=== PATIENT | male | born 1980 | race Caucasian/White ===

== ENCOUNTER 2018-07-05 11:00 | Outpatient (CLI) | payer BC ==
[2018-07-05] VITALS (20 sets, daily range): BP systolic 88–112; BP diastolic 43–72; BMI 28.4
[~2018-07-05] VITALS: Ht 175.3 cm; Wt 87.0 kg
--- NOTE | ~2018-07-05 | EC ---
PATIENT:CATARINA MANJARREZ DATE OF SERVICE: 07/05/18 SEX: M MEDICAL RECORD: [id number] DATE OF : [birth year] LOCATION:[place] [address] AGE OF PATIENT: 37 ADMISSION DATE: 07/05/18 REFERRING PHYSICIAN: INTERPRETING PHYSICIAN: RODO GUO MD ECHOCARDIOGRAM REPORT ECHO CHARGES 4 ECHO COMPLETE Date: 07/06/18 CLINICAL DIAGNOSIS: ME ECHOCARDIOGRAPHIC MEASUREMENTS (adult normal given) AC root (d.<3.7cm) 3.6 cm LV Septum d (<1.2 cm> 1.5 cm Valve Excursion 2.2 cm LV Septum (systole) 1.6 cm Left Atria (s.<4.0cm> 3.2 cm LVPW d(<1.2cm) 1.5 cm RV (d.<2.3cm) cm LVPW (sytole) 1.6 cm LV diastole(<5.6CM) 4.7 cm MV E-F(>70mm/sec) cm LV systole 3.4 cm LVOT Diameter 1.9 cm MV exc.(>10mm) 1.3 cm Est.ejection fraction (50-75%) % DOPPLER: LVIT cm/sec A 69.0 cm/sec E 62.0 cm/sec LA cm/sec RVSP 25 mmHg LVOT 101 cm/sec AOP1/2T m/s Asc. Ao 128 cm/sec RVOT 85 cm/sec RA cm/sec PA 130 cm/sec AV Gradient Peak 6.59 mmHg AV Mean 4.29 mmHg AV Area 2.1 cm MV Gradient Peak 2.93 mmHg MV Mean 1.52 mmHg MV Area cm COMMENTS: Candy Packer: Anton JONES Candle Molder Hand: 1 Dr. Guo TAPE# PACS Pericardial Effusion N DATE OF SERVICE: 07/06/2018 PROCEDURE: Echocardiogram. FINDINGS: 1. Left ventricular chamber size is within normal limits. Left ventricular systolic function is mildly depressed. Overall ejection fraction 45% to 50%, apical hypokinesis. 2. Left atrium, right atrium, right chamber size are within normal limits. 3. Valvular structures have normal structure and motion. ECHOCARDIOGRAM REPORT [id number] CATARINA MANJARREZ 4. Doppler interrogation reveals no significant valvular insufficiency or stenosis. 5. No evidence of pericardial effusion or left ventricular thrombus. TRANSINT:[id number] Voice Confirmation ID: [id number] DOCUMENT ID: [id number] RODO GUO MD CC: [id number] DICTATION DATE: 07/06/18 1024 BUNCH MAKER: 07/06/18 [address] [place] [id number] [place] [id number]
--- NOTE | ~2018-07-05 | HEMODYNAMI ---
PATIENT:CATARINA MANJARREZ MEDICAL RECORD: [id number] : 76 LOCATION:[facility] ADMISSION DATE: 07/05/18 Generatedon:07/05/201812:04 Patient name: CATARINA MANJARREZ Patient #: [id number] SSN: : 1980 Date of study: 07/05/2018 Page: Of Hemodynamic Procedure Report Patient Data Patient Demographics Procedure consent was obtained First Name: CATARINA Gender: Male Last Name: LOKI : 1980 Patient #: [id number] Age: 37 year(s) Race: Unknown Additional ID: [id number] Contact details Address: [address] [place] [address] [place] State: [place] City: [place] Zip code: [address] Past Medical History Allergies: No known allergies Admission Admission Data Admission Date: 07/05/2018 Admission Time: 11:00 Admit Source: Emergency department Weight (lbs.): 182 Weight (kg.): 82.55 Procedure Procedure Types Cath Procedure Diagnostic Procedure [facility] w/Coronaries Sedation Charges Moderate Sedation up to 15 minutes PCI Procedure Coronary Stent Coronary Stent Additional AMI/SVG/COMMERCIAL FISHING VESSEL OPERATOR PTCA or Stent AMI-BMS/STEPHANI Initial Procedure Description Procedure Date Procedure Date: 07/05/2018 Procedure Start Time: 11:41 Procedure End Time: 12:02 Procedure Staff Name Function Keith Guo MD Performing Physician Brianda Camejo RT Monitor Jeffery Maddox RT Scrub Nicolette Moser RN Nurse Procedure Data Cath Procedure Fluoroscopy Diagnostic fluoroscopy Total fluoroscopy Time: 4.9 time: 4.9 min min Diagnostic fluoroscopy Total fluoroscopy dose: 789 dose: 789 mGy mGy Contrast Material Contrast Material Type Amount (ml) Isovue 300 150 Entry Location Entry Primary Successful Side Size Upsize Upsize Entry Closure Succes sful Closure Location (Fr) 1 (Fr) 2 (Fr) Remarks Device Remarks Femoral Right 6 Fr Exoseal artery Short Estimated blood loss: 5 ml Diagnostic catheters Device Type Used For End Catheter Placement MULTIPACK Pigtail 5 Fr Multi-vessel catheter Angiography MULTIPACK JL 4.0 5Fr Left Coronary catheter Angiography MULTIPACK 3DRC 5Fr Right Coronary catheter Angiography Procedure Complications No complications Procedure Medications Medication Administration Route Dosage 0.9% NaCl I.V. 100 ml/hr Oxygen etCO2 Nasal cannula 2 l/min Lidocaine 2% added to field 20 Heparin Flush Bag added to field 2 bags (1000units/500ml NS) Versed I.V. 2 mg Fentanyl I.V. 50 mcg Versed I.V. 2 mg Fentanyl I.V. 50 mcg Heparin Bolus I.V. 5000 units Integrilin (Bolus I.V. 7.3 ml 2mg/ml) Integrilin (Bolus 7.3 ml 2mg/ml) Integrilin Drip I.V. drip 13 ml/hr (75mg/100ml) Versed I.V. 2 mg Fentanyl I.V. 100 mcg Lopressor I.V. 5 mg Hemodynamics Rest Heart Rate: 96 (bpm) Snapshots Pre Cath Intra NCS Post Cath Vital Signs Time Heart Resp SPO2 etCO2 NIBP (mmHg) Rhythm Pain Sedation Rate (ipm) (%) (mmHg) Status Level (bpm) 11:31:00 99 21 99 31 173/106(123) NSR 0 (11) 10(A) , No pain 11:35:24 92 10 100 18.7 163/104(131) NSR 0 (11) 10(A) , No pain 11:39:45 93 19 100 32.2 168/109(130) NSR 0 (11) 10(A) , No pain 11:44:03 96 21 99 36.7 159/99(130) NSR 0 (11) 9(A) , No pain 11:48:14 101 22 100 31.5 128/102(120) NSR 0 (11) 9(A) , No pain 11:52:26 83 20 100 36 149/97(119) NSR 0 (11) 9(A) , No pain 11:56:38 70 11 100 29.2 134/88(113) NSR 0 (11) 9(A) , No pain 12:00:52 78 19 100 36.7 139/96(114) NSR 0 (11) 10(A) , No pain Medications Time Medication Route Dose Verified Delivered Reason Notes Effectiveness by by 11:33:56 0.9% NaCl I.V. 100 Keith Nicolette used for ml/hr Sari Moser religious healer 11:34:02 Oxygen etCO2 2 Keith Nicolette used for Nasal l/min Sari Moser procedure cannula RN 11:34:08 Lidocaine 2% added 20ml Keith Keith for local to vial Sari Guo MD anesthetic field 11:34:14 Heparin Flush added 2 Keith Keith used for Bag to bags Sari Guo MD procedure (1000units/500ml field NS) 11:35:00 Versed I.V. 2 mg Keith Nicolette for sedation Sari Moser RN 11:35:06 Fentanyl I.V. 50 Keith Nicolette for sedation mcg Sari Moser RN 11:39:34 Versed I.V. 2 mg Keith Nicolette for sedation Sari Moser RN 11:39:38 Fentanyl I.V. 50 Keith Nicolette for sedation mcg Sari Moser RN 11:45:37 Heparin Bolus I.V. 5000 Keith Nicolette for verif ied units Sari Moser anticoagulation with Dr. OLMAN Guo 11:46:24 Integrilin I.V. 7.3 Keith Nicolette for waste d (Bolus 2mg/ml) ml Sari Moser antiplatelet 2.7mL RN therapy 11:47:13 Integrilin IC 7.3 Keith Keith for WASTE D (Bolus 2mg/ml) ml Sari Guo MD antiplatelet 2.7ML therapy 11:54:51 Integrilin Drip I.V. 13 Keith Nicolette for (75mg/100ml) drip ml/hr Sari Moser antiplatelet RN therapy 11:55:01 Versed I.V. 2 mg Keith Nicolette for sedation Sari Moser RN 11:55:11 Fentanyl I.V. 100 Keith Nicolette for sedation mcg Sari Moser RN 11:55:18 Lopressor I.V. 5 mg Keith Nicolette Per physician Sari Moser childbirth and infant care teacher Log Time Note 11:18:49 Diagnostic Cath Status : Elective 11:19:06 Nicolette Moser RN sent for patient. Start room use. 11:19:07 Time tracking: Regular hours (M-F 7:00 - 5:00) 11:19:13 Plan of Care:Hemodynamics will remain stable., Cardiac rhythm will remain stable., Comfort level will be maintained., Respiratory function will remain adequate., Patient/ family verbilizes understanding of procedure., Procedure tolerated without complication., Recovers from procedure without complications.. 11:24:46 Patient received from ED to CCL 1 Alert and oriented. Tansferred to table in Supine position. 11:24:47 Warm blankets applied, and destini hugger turned on for patient comfort. 11:24:47 Correct patient and procedure confirmed by team. 11:24:49 Signed procedure consent form obtained from patient. 11:24:50 ECG and BP/O2 sat monitors applied to patient. 11:29:41 Vital chart was started 11:30:05 Baseline sample Acquired. 11:30:20 Rhythm: sinus rhythm , w/ ST elevation 11:30:23 Full Disclosure recording started 11:30:34 H&P Date Dictated: 07/05/2018 ER History on chart.. 11:30:36 Pre-procedure instructions explained to patient. 11:30:38 Pre-op teaching completed and patient verbalized understanding. 11:30:40 Family in waiting room. 11:30:57 Patient NPO since Breakfast. 11:31:06 Patient allergic to No known allergies 11:31:13 Is patient on blood thinner?No 11:31:30 LOADED WITH PLAVIX IN THE ER 11:31:33 Patient diabetic? No. 11:31:41 ----Pre-sedation anethsthesia assessment.---- 11:31:46 Previous problem with sedation/anesthesia? No ? 11:31:49 Snore? Yes 11:31:50 Sleep apnea? No 11:31:53 Deviated septum? No 11:31:54 Opens mouth fully? Yes 11:31:56 Sticks out tongue? Yes 11:31:59 Airway obstruction? No ? 11:32:07 Dentures? No ? 11:32:18 Pre procedure: right dorsailis pedis pulse 2+ Normal; easily identifiable; not easily obliterated 11:32:31 Patient pain scale 3/10 NOTIFIED. 11:32:45 IV patent on arrival in left antecubital with 0.9% NaCl at O. 11:32:54 Right groin area was prepped with chlora-prep and draped in sterile fashion 11:33:06 Admit Source: Emergency department 11:33:11 Patient Weight : 182 lbs 11:33:51 Alarms reviewed by R. N. 11:33:52 Sharps counted by scrub and verified by R.N. 11:33:56 0.9% NaCl 100 ml/hr I.V. was administered by Nicolette Moser RN; used for procedure; 11:34:01 Baseline sample Acquired. 11:34:02 Oxygen 2 l/min etCO2 Nasal cannula was administered by Nicolette Moser RN; used for procedure; 11:34:08 Lidocaine 2% 20ml vial added to field was administered by Keith Guo MD; for local anesthetic; 11:34:12 Physician arrived 11:34:13 --------ALL STOP TIME OUT------ 11:34:13 Final Timeout: patient, procedure, and site verified with staff and physician. All members of the team are in agreement. 11:34:14 Heparin Flush Bag (1000units/500ml NS) 2 bags added to field was administered by Keith Guo MD; used for procedure; 11:34:37 Right groin site verified by team. 11:34:43 Maximum allowable Isovue 300 dose 300ml. Physician notified. (300ml for normal creatinines. For patients with creatinine of 1.7 or higher multiply weight(kg) x 5 divided by creatinine.) 11:34:49 Fire Safety Assessment: A--An alcohol-based skin anteseptic being used preoperatively., C--Open oxygen or nitrous oxide is being used., D--An ESU, laser, or fiber-optic light is being used. 11:34:53 Physical assessment completed. ASA score P 2 - A patient with mild systemic disease as per Keith Guo MD. 11:34:56 Sedation plan: IV Moderate Sedation Medication:Versed, Fentanyl 11:35:00 Versed 2 mg I.V. was administered by Nicolette Moser RN; for sedation; :35:06 Fentanyl 50 mcg I.V. was administered by Nicolette Moser RN; for sedation; 11:38:23 Zero performed for pressure channel P1 11:39:15 Procedure started. 11:39:34 Versed 2 mg I.V. was administered by Nicolette Moser RN; for sedation; 11:39:38 Fentanyl 50 mcg I.V. was administered by Nicolette Moser RN; for sedation; 11:41:06 Local anesthetic to right femoral artery with Lidocaine 2% by Keith Guo MD.INITIAL ACCESS ONLY 11:41:15 A 6 Fr Short sheath was inserted into the Right Femoral artery 11:41:41 Use device set Femoral Dx 11:41:42 ACIST Syringe (58178) opened to sterile field. 11:41:42 Bag Decanter (2002S) opened to sterile field. 11:41:43 Medline Cath Pack ([id number]) opened to sterile field. 11:41:43 DIAGNOSTIC WIRE .035 260cm J wire (041545) opened to sterile field. 11:41:45 ACIST Hand Control (19423) opened to sterile field. 11:41:45 ACIST Manifold (52523) opened to sterile field. 11:41:46 DIAGNOSTIC Multipack 5Fr catheter set ([id number]) opened to sterile field. 11:41:46 Tegaderm 4 x 4 (1626W) opened to sterile field. 11:41:59 SHEATH 6FR [place] (CEJ030) opened to sterile field. 11:42:19 A MULTIPACK Pigtail 5 Fr catheter was advanced over the wire and used for Multi-vessel Angiography. 11:42:22 LV hemodynamics recorded. 11:42:23 LV gram done using WILKS 11:42:25 Injector settings: Ml/sec: 5, Volume: 15, 11:42:32 EF : 35 % 11:42:46 Catheter removed. 11:42:52 A MULTIPACK JL 4.0 5Fr catheter was advanced over the wire and used for Left Coronary Angiography. 11:43:02 LCA angiography performed. 11:43:05 Injector settings: Ml/sec: 3, Volume: 6, 11:44:38 Catheter removed. 11:44:44 A MULTIPACK 3DRC 5Fr catheter was advanced over the wire and used for Right Coronary Angiography. 11:44:48 RCA angiography performed. 11:44:50 Injector settings: Ml/sec: 3, Volume: 6, 11:44:52 Catheter removed. 11:44:53 Proceeding to intervention. 11:45:19 INFLATOR Merit BasixCompak (SU0781) opened to sterile field. 11:45:20 GUIDE 6FR XBLAD 3.5 catheter ([id number]) opened to sterile field. 11:45:21 CHOICE PT Extra Support 182cm wire ([id number]) opened to sterile field. 11:45:36 6 Fr XBLAD 3.5 guide catheter was inserted over the wire 11:45:37 Heparin Bolus 5000 units I.V. was administered by Nicolette Moser RN; for anticoagulation; verified with Dr. Guo 11:45:44 CHOICE PT wire advanced. 11:45:56 Wire advanced across lesion. 11:46:24 Integrilin (Bolus 2mg/ml) 7.3 ml I.V. was administered by Nicolette Moser RN; for antiplatelet therapy; wasted 2.7mL 11:46:45 Inflate balloon Inflation number: 1 A EUPHORA 2.5 x 20 Balloon ([id number]) was prepped and advanced across the Prox LAD, then inflated to 13 SAGAR for 0:10 (min:sec). 11:47:13 Integrilin (Bolus 2mg/ml) 7.3 ml IC was administered by Keith Guo MD; for antiplatelet therapy; WASTED 2.7ML 11:47:35 Inflation number: 2 The EUPHORA 2.5 x 20 Balloon ([id number]) was reinflated across the Prox LAD, to 13 SAGAR for 0:10 (min:sec). 11:47:44 Balloon removed over the wire. 11:49:11 Place stent Inflation Number: 3 A JAXSON RX 3.0 x 26 stent ([id number]) was prepped and advanced across the Prox LAD. The stent was deployed at 17 SAGAR for 0:10 (min:sec). 11:50:10 Stent catheter was removed intact over wire. 11:50:41 Wire redirected to DIAGONAL. 11:52:36 Inflate balloon Inflation number: 1 A EUPHORA 2.5 x 12 Balloon ([id number]) was prepped and advanced across the 1st Diag, then inflated to 11 SAGAR for 0:10 (min:sec). 11:53:55 Balloon removed over the wire. 11:54:51 Integrilin Drip (75mg/100ml) 13 ml/hr I.V. drip was administered by Nicolette Moser RN; for antiplatelet therapy; 11:55:01 Versed 2 mg I.V. was administered by Nicolette Moser RN; for sedation; 11:55:11 Fentanyl 100 mcg I.V. was administered by Nicolette Moser RN; for sedation; 11:55:18 Lopressor 5 mg I.V. was administered by Nicolette Moser RN; Per physician; 11:56:11 Place stent Inflation Number: 2 A JAXSON RX 2.5 x 08 stent ([id number]) was prepped and advanced across the 1st Diag. The stent was deployed at 11 SAGAR for 0:10 (min:sec). 11:56:55 Stent catheter was removed intact over wire. 11:56:57 Wire removed. 11:56:58 Guide catheter removed. 11:57:15 EXOSEAL 6Fr (EX600) opened to sterile field. 11:57:26 Sheath removed intact; hemostasis achieved with Exoseal to the Right Femoral artery. 11:59:05 Procedure ended.(Physican Out) 11:59:47 Fluoroscopy time 04.90 minutes. 11:59:53 Fluoroscopy dose: 789 mGy 11:59:53 Flurop Dose total: 789 12:00:14 Contrast amount:Isovue 300 150ml. 12:00:27 Sharps counted by scrub and verified by R.N. 12:00:29 Insertion/operative site no bleeding no hematoma. 12:00:32 Post-op/insertion site Right Femoral artery dressed using a 4 x 4 and Tegaderm. 12:00:35 Post right femoral artery:stable 12:00:36 Post Procedure Pulses reassessed and unchanged 12:00:44 Post procedure rhythm: sinus rhythm 12:00:47 Estimated blood loss: 5 ml 12:00:50 Post procedure instruction explained to patient.Patient verbalizes understanding. 12:00:50 Patient needs reinforcement of post procedure teaching. 12:02:03 Procedure type changed to Cath procedure, Diagnostic procedure, LHC, LHC w/Coronaries, Sedation Charges, Moderate Sedation up to 15 minutes, PCI procedure, Coronary Stent, Coronary Stent Additional, AMI/SVG/COMMERCIAL FISHING VESSEL OPERATOR PTCA or Stent, AMI-BMS/STEPHANI Initial 12:02:04 Procedure and supply charges have been captured, reviewed, submitted and are correct. 12:02:09 Procedure Complication : No complications 12:02:12 Vital chart was stopped 12:02:15 See physician's report for complete and final results. 12:02:19 Report given to CVICU. 12:02:22 Patient transfered to CVICU with Stretcher. 12:02:28 Procedure ended. 12:02:28 Full Disclosure recording stopped 12:02:41 ACC-PCI Only Patient was given prescriptions, or instructed by Keith Guo MD to start/continue the following medications upon discharge: Plavix 12:02:44 End room use (Document Last) Intervention Summary Intervention Notes Time ActionType Lesion and Equipment Used Action# Pressure Duration Attributes 11:46:45 Inflate Prox LAD EUPHORA 2.5 x 1 13 00:10 balloon 20 Balloon ([id number]) 11:47:35 Reinflate Prox LAD EUPHORA 2.5 x 2 13 00:10 balloon 20 Balloon ([id number]) 11:49:11 Place stent Prox LAD JAXSON RX 3.0 x 3 17 00:10 26 stent ([id number]) 11:52:36 Inflate 1st Diag EUPHORA 2.5 x 1 11 00:10 balloon 12 Balloon ([id number]) 11:56:11 Place stent 1st Diag JAXSON RX 2.5 x 2 11 00:10 08 stent ([id number]) Device Usage Item Name Manufacture Quantity Catalog Number Hospital Part Current M inimal Lot# / Charge Number Stock Stock Serial# Code ACIST Syringe Acist 1 64289 853186 447528 070344 2 0 (67177) Medical Systems Inc Bag Decanter Microtek 1 2001S 718514 44491 247741 5 () Medical Inc. Medline Cath Medline 1 [id number] 725869 17863 932400 5 Pack ([id number]) DIAGNOSTIC [facility] 1 097038 085708 967280 342266 3 0 WIRE .035 260cm J wire (785119) ACIST Hand Acist 1 19119 618836 090713 290641 5 Control Medical (03358) Systems Inc ACIST Manifold Acist 1 05529 856400 011280 473322 5 (32150) Medical Systems Inc DIAGNOSTIC Cardinal 1 IB0342 995348 80114 964962 3 0 Multipack 5Fr Health catheter set ([id number]) Tegaderm 4 x 4 3M 1 1626W 153824 100146 685642 5 (1626W) SHEATH 6FR Terumo 1 RGO722 890830 549799 249909 4 0 [place] (JAI512) MULTIPACK Cardinal 1 707337 5 Pigtail 5 Fr Health catheter MULTIPACK JL Cardinal 1 001150 5 4.0 5Fr Health catheter MULTIPACK 3DRC Cardinal 1 606673 5 5Fr catheter Health INFLATOR Merit Merit 1 BT2545 860918 350648 848932 1 5 [facility] Medical (GE1633) GUIDE 6FR Cardinal 1 [id number] 851346 902223 760948 1 0 XBLAD 3.5 Health catheter ([id number]) CHOICE PT Vance 1 [id number] 800946 292840 398399 5 Extra Support Scientific 182cm wire ([id number]) EUPHORA 2.5 x Medtronic 1 [id number] 368910 520462 786653 5 [id number] 20 Balloon ([id number]) JAXSON RX 3.0 x Medtronic 1 [id number] 689067 0983200 503571 5 [id number] 26 stent ([id number]) EUPHORA 2.5 x Medtronic 1 [id number] 493669 124370 196258 5 [id number] 12 Balloon ([id number]) JAXSON RX 2.5 x Medtronic 1 [id number] 577836 0508662 047685 5 [id number] 08 stent ([id number]) EXOSEAL 6Fr Cardinal 1 EX600 888482 401473 650154 1 0 (EX600) Health Signature Audit [place] Stage Time Signature Unsigned Intra-Procedure 07/05/2018 Brianda Camejo 12:04:38 PM RT(R) Signatures Monitor : Brianda Camejo RT Signature : Date : Time : [facility] [address] [place] [address]
[2018-07-05 11:29] LABS: BASOPHILS 0.1 % (0-2); EOSINOPHILS 0.1 % (0-7); HEMATOCRIT 42.4 % (42.0-54.0); HEMOGLOBIN 14.7 g/dL (13.5-17.5); IMMATURE GRANULOCYTES 0.4 % (0-5); LYMPHOCYTES 6.7 % (15-50); MCH 30.2 pg (26.0-34.0); MCHC 34.7 g/dL (31.0-37.0); MCV 87.1 fL (80.0-100.0); MEAN PLATELET VOLUME 10.4 fL (7.4-10.4); MONOCYTES 6.6 % (2-11); NEUTROPHILS 86.1 % (40-80); PLATELET COUNT 220 10x3/uL (130-400); RBC 4.87 10x6/uL (4.20-6.10); RDW 13.3 % (11.5-14.5); WBC 16.9 10x3/uL (4.8-10.8)
[2018-07-05 11:38] LABS: ANION GAP 14.3 mmol/L (8-16); CALCIUM 9.3 mg/dL (8.5-10.1); CARBON DIOXIDE 25.2 mmol/L (21.0-32.0); CREATININE - SERUM 1.3 mg/dL (0.6-1.3); POTASSIUM - SERUM 4.5 mmol/L (3.5-5.1)
--- NOTE | 2018-07-05 12:15 | NUR ---
PT ARRIVED FROM GRID OPERATOR VIA BED. ABLE TO ANSWER QUESTIONS APPROPRIATELY. FIANCE AT BEDSIDE. 6F EXOCEL TO RIGHT GROIN. FEMSTOP IN PLACE. PEDAL PULSES PALPABLE. NO BLEEDING OR HEMATOMA NOTED AT THIS TIME. PT DENIES ANY PAIN AT THIS TIME. HAS 20 G PIV ON L-FOREARM WITH INTEGRILIN AT 13ML/HR. NS INITIATED AT 100ML/HR PER ORDERS.
--- NOTE | 2018-07-05 13:39 | NUR ---
ORDERED REGULAR DIET PER DR. VINCENT. ICE CHIPS PROVIDED AT THIS TIME. IN GOOD SPIRITS. FIANCE AT BEDSIDE. WILL CONTINUE TO MONITOR.
--- NOTE | 2018-07-05 14:35 | NUR ---
PERIPHERAL PULSE ON RIGHT LEG PALPABLE. NO HEMATOMA OR BLEEDING NOTED AT THIS TIME. PT COMPLAINING OF DISCOMFORT DUE TO FEM STOP. WILL CONTINUE TO MONITOR.
--- NOTE | 2018-07-05 15:04 | NUR ---
NO BLEEDING OR HEMATOMA NOTED. FEM STOP PRESSURE REDUSED TO 120 TO 100. WILL CONTINUE TO MONITOR.
--- NOTE | 2018-07-05 16:43 | NUR ---
FEM STOP REMOVED PER ORDERS. NO BLEEDING OR HEMATOMA NOTED. MILD BRUISING NOTED AT SITE. PT SITTING UP IN BED. MEAL TRAY DELIVERED AND SET UP. FIANCE AT BEDSIDE. NO FURTHER NEEDS AT THIS TIME. WILL CONTINUE TO MONITOR.
--- NOTE | 2018-07-05 17:08 | NUR ---
NO BLEEDING OR HEMATOMA NOTED ON R GROIN AT CATH SITE. PT DENIES CHEST PAIN. ATE 100% OF MEAL. RESTING COMFORTABLY. NO FURTHER NEEDS AT THIS TIME. WILL CONTINUE TO MONITOR.
--- NOTE | 2018-07-05 18:16 | NUR ---
AMBULATED TO BATHROOM. NO BLEEDING AT CATH SITE NOTED. WILL CONTINUE TO MONITOR.
--- NOTE | 2018-07-05 18:50 | NUR ---
INTIGRILIN DRIP OFF AT THIS TIME PER DR. VINCENT'S ORDERS.
--- NOTE | 2018-07-05 19:05 | NUR ---
REC'D TO CARE, CREDIT AND LOAN COLLECTIONS SUPERVISOR PER FLOWSHEET. PT ALERT AND ORIENTED, ARNALDO SOB OR CP. VSS. R GROIN SITE WITH BRUISING, SOFT, NO HEMATOMA. PPP X 4 2+. ALARMS ON AND C/L IN REACH.
--- NOTE | 2018-07-05 20:15 | NUR ---
FAMILY AT BS. UPDATE GIVEN AND QUESTIONS ANSWERED.
--- NOTE | 2018-07-05 21:56 | NUR ---
PT UP TO BR, VOIDED - BACK TO BED INDEPENDENTLY. VSS. DENIES NEEDS.
--- NOTE | 2018-07-05 22:16 | NUR ---
DR. VINCENT NOTIFIED OF B/P 100/61, HR 77. NEW ORDERS REC'D.
--- NOTE | 2018-07-05 23:00 | NUR ---
REASSESSMENT PER FLOWSHEET, NO ACUTE CHANGES. R GROIN SITE UNCHANGED. PT REPORTS "CHEST SORENESS, BRIEFLY, MAY BE FROM WORKING OUT TODAY.".VSS. ALARMS ON AND C/L IN REACH.
[2018-07-06] VITALS (10 sets, daily range): BP systolic 99–117; BP diastolic 57–69; Ht 175.3 cm; Wt 87.0 kg
--- NOTE | 2018-07-06 01:00 | NUR ---
RESTING WITH EYES CLOSED, VSS. NO SIGN OF DISTRESS.
--- NOTE | 2018-07-06 03:18 | NUR ---
REASSESSMENT PER FLOWSHEET, VSS. AWAKENS EASILY, DENIES PAIN OR NEEDS. GROIN SITE UNCHANGED, PPP X 4 2+. ALARMS ON AND C/L IN REACH.
--- NOTE | 2018-07-06 04:17 | NUR ---
PT UP TO BR INDEPENDENT. BACK TO BED. DENIES NEEDS. VSS.
--- NOTE | 2018-07-06 06:12 | NUR ---
GIVEN FRESH WATER, VSS. DENIES NEEDS.
--- NOTE | 2018-07-06 07:20 | NUR ---
AA&OX4. RESTING COMFORTABLY IN BED. DENIES CHEST PAIN. R-GROIN DRESSING C/D/I. BRUISING NOTED AT SITE. VSS. NO FEVER. SHIFT ASSESSMENT COMPLETED. WILL CONTINUE TO MONITOR.
--- NOTE | 2018-07-06 08:42 | NUR ---
AM MEDS GIVEN. NO NEEDS AT THIS TIME.
--- NOTE | 2018-07-06 10:39 | HP ---
PATIENT: CATARINA CUEVA MEDICAL RECORD: [id number] ACCOUNT: [id number] LOCATION:[facility] D.CV01 : 76 ADMISSION DATE: 07/05/18 PCP: DEVEN AKHTAR HISTORY AND PHYSICAL EXAMINATION DIAGNOSES: 1. Chest pain. 2. Abnormal ECG. 3. Family history of coronary artery disease. HISTORY: Mr. Cueva presents with chest pain that started at 9:00 a.m. as he was working out. He was doing cardio exercises when the pain began. It was quite severe in the beginning, it has improved. His EKG is compatible with an acute anterior myocardial infarction. He has no cardiac history and no real medical history. He was told in the past that he had an enlarged heart and had a workup in [place]. He is not sure exactly what the workup consisted of, but he was told that he did not need to come back. He has a strong family history of coronary artery disease. Father and grandfather with premature coronary artery disease and myocardial infarctions at young ages. He is a nonsmoker. PHYSICAL EXAMINATION: GENERAL APPEARANCE: Well-nourished, well-developed, appears stated age. Level of distress, comfortable. PSYCHIATRIC: Mental status, alert, normal affect. Orientation, oriented to time, place and person. EYES: Lids and conjunctiva, noninjected. No discharge, no pallor. ENT: Lips, teeth, gums, normal dentition. Oropharynx, no cyanosis, no pallor. NECK: Carotid arteries, bilateral normal upstroke, no bruits, no thrills. JUGULAR VEINS: No jugular venous pressure or distention. CERVICAL LYMPH NODES: Nontender, nonenlarged. THYROID: Not enlarged. Nontender. No nodules. LUNGS: Respiratory effort, unlabored. CHEST: Normal curvature. No thoracic deformity. No chest wall tenderness. Percussion, resonant. Auscultation, clear. No wheezes, no rales, no rhonchi. CARDIOVASCULAR: Precordial exam, nondisplaced. No heaves or pericardial thrills. Rate and rhythm, regular. Heart sounds, normal S1, normal S2. No S3, no gallop, no rub. Systolic murmur, not heard. Diastolic murmur, not heard. EXTREMITIES: No cyanosis, no edema. Peripheral pulses, full and equal in all extremities, except as noted. No bruits appreciated. ABDOMEN: Soft, nondistended. Normal aorta. No bruit. Nontender. No masses. Liver, nontender, no hepatomegaly. Spleen, nontender, no splenomegaly. MUSCULOSKELETAL: No joint tenderness. No joint swelling. No erythema. NEUROLOGICAL: Normal gait, normal strength, normal tone. SKIN: Warm and dry. OVERALL IMPRESSION: Chest pain compatible with acute coronary syndrome with an abnormal ECG, compatible with an acute myocardial infarction. We will proceed with coronary angiography. Further care depends upon findings of the angiography. TRANSINT:[id number] Voice Confirmation ID: [id number] DOCUMENT ID: [id number] HISTORY AND PHYSICAL [id number] CATARINA CUEVA, RODO MOSER at 1039 CC: [id number] DICTATION DATE: 07/05/18 1127 DRIP PUMPER: 07/05/18 [id number] [place] [address]
--- NOTE | 2018-07-06 10:39 | OP ---
PATIENT NAME: CATARINA MANJARREZ MEDICAL RECORD: [id number] :76 LOCATION:[facility].CV01 ADMISSION DATE: SURGEON: RODO VINCENT MD DATE OF OPERATION: 07/05/2018 DATE OF SERVICE: 07/05/2018 PROCEDURES: 1. PTCA stent LAD. 2. PTCA stent LAD diagonal. 3. Left heart catheterization. 4. Selective coronary angiography. 5. Left ventriculogram. INDICATION: Acute anterior myocardial infarction. PROCEDURE IN DETAIL: After informed consent was obtained and after a detailed description of risks, benefits as well as alternative therapies, the patient elected to proceed with angiogram and angioplasty. The right femoral area was prepped and draped in normal sterile fashion. Right femoral artery was cannulated via modified Seldinger technique with placement of 6-Romanian sheath. All catheters exchanged through this sheath. FINDINGS: Left ventriculogram was performed in standard 30-degree WILKS view, reveals anteroapical hypokinesis. Overall ejection fraction in the 35% range. SELECTIVE CORONARY ANGIOGRAPHY: 1. Left main is with no significant angiographic disease. 2. Left anterior descending is totally occluded proximally. The diagonal just proximal to the total occlusion is 95% stenosed. 3. The left circumflex has moderate irregularities, but no flow-limiting stenosis. 4. Right coronary has moderate irregularities, but no flow-limiting stenosis. PTCA STENT OF THE LAD AND DIAGONAL: The LAD was addressed with a 3.0 x 26 mm [place], the diagonal with a 2.5 x 8 mm [place]. Result was 0% residual. IMPRESSION: Successful percutaneous transluminal coronary angioplasty stent of the left anterior descending going from 100% initial stenosis with 0 flow to 0% residual stenosis, LIYA-3 flow. TRANSINT:[id number] Voice Confirmation ID: [id number] DOCUMENT ID: [id number] RODO VINCENT MD at 1039 CC: [id number] DICTATION DATE: 07/05/18 1201 SIGN DESIGNER: 07/05/18 [address] [place] [address]
[2018-07-06] MEDS ORDERED: PLAVIX75 MG PO (10:41)
[2018-07-06] MEDS ORDERED: TOPROL XL25 MG PO (10:43)
[2018-07-06] MEDS ORDERED: BAYER CHEWABLE81 MG PO (10:44)
[2018-07-06] MEDS ORDERED: PRAVACHOL40 MG PO (10:44)
--- NOTE | 2018-07-06 11:20 | NUR ---
APPOINTMENT MADE WITH CARDIOLOGY ON AUGUST 03 AT 1120 WITH LEONEL MICHELLE APN.
--- NOTE | 2018-07-06 11:38 | NUR ---
DISCHARGE INSTRUCTIONS REVIEWED WITH PATIENT AND FIANCE. SIGNED COPY PLACED IN CHART. L-FOREARM PIV DC'D WITH CATHETER TIP INTACT. PERSONAL BELONGINGS SENT WITH PATIENT. WHEELED OUT TO PERSONAL VEHICLE BY RN.
== END 2018-07-06 11:42 | disposition home or self-care (01) ==
LOC: D.ER 11:00 → D.CVICU 11:00 → EDSTATUS 11:01 → D.ER 12:32 → D.CVICU 12:32
PROVIDERS: Internal Medicine Interventional Cardiology; ATTEND Family Medicine
DX: I21.09 ST elevation (STEMI) myocardial infarction involving other coronary artery of anterior wall (principal); Z82.49 Family history of ischemic heart disease and other diseases of the circulatory system

== ENCOUNTER → 2018-10-20 08:32 | Outpatient (CLI) | payer BC ==
[2018-07-06 08:32] VITALS: BMI 28.3
[~2018-10-20 08:32] MED LIST: BAYER CHEWABLE81 MG PO; PLAVIX75 MG PO; PRAVACHOL40 MG PO; TOPROL XL25 MG PO
[2018-10-20 13:10] LABS: CHOL - HDL RATIO 2.4 ratio (2.3-4.9); LDL-HDL RATIO 1.3 ratio (1.5-3.5)
== END | disposition home or self-care (01) ==
LOC: D.HCCARDIO 08:32
PROVIDERS: ATTEND Internal Medicine Interventional Cardiology
DX: I25.10 Atherosclerotic heart disease of native coronary artery without angina pectoris (principal)

== ENCOUNTER → 2018-10-20 12:16 | Outpatient (CLI) | payer BC ==
[2018-07-06 08:32] VITALS: BMI 28.3
--- NOTE | 2018-10-25 12:04 | EC ---
PATIENT:CATARINA MANJARREZ DATE OF SERVICE: 10/20/18 SEX: M MEDICAL RECORD: [id number] DATE OF : 76 LOCATION:D.LAB AGE OF PATIENT: 38 ADMISSION DATE: 10/20/18 REFERRING PHYSICIAN: INTERPRETING PHYSICIAN: RODO VINCENT MD ECHOCARDIOGRAM REPORT ECHO CHARGES Date: CLINICAL DIAGNOSIS: ECHOCARDIOGRAPHIC MEASUREMENTS (adult normal given) AC root (d.<3.7cm) cm LV Septum d (<1.2 cm> cm Valve Excursion cm LV Septum (systole) cm Left Atria (s.<4.0cm> cm LVPW d(<1.2cm) cm RV (d.<2.3cm) cm LVPW (sytole) cm LV diastole(<5.6CM) cm MV E-F(>70mm/sec) cm LV systole cm LVOT Diameter cm MV exc.(>10mm) cm Est.ejection fraction (50-75%) % DOPPLER: LVIT cm/sec A cm/sec E cm/sec LA cm/sec RVSP mmHg LVOT cm/sec AOP1/2T m/s Asc. Ao cm/sec RVOT cm/sec RA cm/sec PA cm/sec AV Gradient Peak mmHg AV Mean mmHg AV Area cm MV Gradient Peak mmHg MV Mean mmHg MV Area cm COMMENTS: Cigar Packer: Hr Associate: DAVID# Pericardial Effusion DATE OF SERVICE: 10/20/2018 Echocardiogram FINDINGS: 1. Left ventricular chamber size is within normal limits. Left ventricular systolic function is normal at 55%. This is an improvement from his previous ejection fraction of 40% to 45%. 2. Left atrium is within normal limits at 3.7 cm. Right atrium and right ventricular chamber sizes are as well within normal limits. ECHOCARDIOGRAM REPORT [id number] CATARINA MANJARREZ 3. Valvular structures have normal structure and motion. 4. Doppler interrogation reveals trace mitral regurgitation, mild tricuspid regurgitation, no other valvular insufficiency or stenosis. Pulmonary systolic pressure is normal estimated 33 mmHg. 5. No evidence of pericardial effusion or left ventricular thrombus. TRANSINT:[id number] Voice Confirmation ID: [id number] DOCUMENT ID: [id number] RODO VINCENT MD at 1204 CC: [id number] DICTATION DATE: 10/24/18 1126 METAL SPINNER: 10/24/18 1143 DEP CLI 10/20/18 [facility] [address] [place] [place] [address]
== END | disposition home or self-care (01) ==
LOC: D.LABREF 12:16
PROVIDERS: ATTEND Nurse Practitioner Adult Health
DX: I25.10 Atherosclerotic heart disease of native coronary artery without angina pectoris (principal)